=== PATIENT | female | born 1960 | race Caucasian/White ===

== ENCOUNTER 2016-11-10 16:12 | Emergency (ER) | payer OTHER ==
--- NOTE | 2016-11-10 17:21 | RAD ---
EXAM: LEFT KNEE FOUR VIEWS 11/10/16 HISTORY: Fall. Pain. COMPARISON: None. FINDINGS: There is a minimally displaced patellar fracture. Associated minimal suprapatellar effusion. Medial and lateral joint spaces appear to be preserved. No additional fractures. IMPRESSION: Minimally displaced patellar fracture. POS: BERHANE
[2016-11-10] MEDS ORDERED: Ketorolac Tromethamine 60 MG/2 ML VIAL ONE (18:12)
--- NOTE | 2016-11-10 18:16 | PICIS ---
[facility] EMERGENCY RECORD TRIAGE ([facility] Nov 10, 2016 16:24 JPER) PATIENT: NAME: Deana Sandra, AGE: 56, GENDER: female, : Sat1960, TIME OF GREET: SatNov 10, 2016 16:13, PREFERRED LANGUAGE: Wolof, RACE: WHITE, ETHNICITY: Not or , ECODE BILLING MAP: [facility], SSN: [id number], Zip Code: [address], KG WEIGHT: 76.66, PHONE: , , , PERSON ID: [id number], PCP: DIANN. ([facility] Nov 10, 2016 16:24 JPER) COMPLAINT: LT LEG PAIN. ([facility] Nov 10, 2016 16:24 JPER) ADMISSION: URGENCY: 4 Non Urgent, ADMISSION SOURCE: Home, TRANSPORT: Walk-in, BED: ED -03. ([facility] Nov 10, 2016 16:24 JPER) ASSESSMENT: Assessment: FELL APPROX 15 MIN PAST FALLING ON LEFT KNEE. ([facility] Nov 10, 2016 16:24 JPER) PAIN: Patient complains of pain described as, aching, on a scale 0-10 patient rates pain as 10. ([facility] Nov 10, 2016 16:24 JPER) IMMUNIZATIONS: Flu vaccine up to date, Tetanus immunization up to date, Pneumococcal vaccine up to date. ([facility] Nov 10, 2016 16:24 JPER) SIRS SCORING: Heart Rate 55-109 (0), Temp range 96.8-101.1 (0), respiratory rate 12-24 (0), Mental Status altered: no (0). ([facility] Nov 10, 2016 16:24 JPER) TRIAGE SCREENING: Patient denies suicidal ideation, Patient denies presence of domestic violence. ([facility] Nov 10, 2016 16:24 JPER) PROVIDERS: TRIAGE NURSE: Marce Kitchen RN. ([facility] Nov 10, 2016 16:24 JPER) VITAL SIGNS: BP 135/79, Pulse 84, Resp 18, Temp 98.5, (Oral), Pain 10, O2 Sat 98, on Room Air, Time 11/10/2016 16:19. (16:19 JPER) PREVIOUS VISIT ALLERGIES: Penicillins. ([facility] Nov 10, 2016 16:24 JPER) KNOWN ALLERGIES ALLERGIES: (Unconfirmed) FOOD ALLERGIES: (Unconfirmed) Iodides Iodine (Unconfirmed) LATEX ALLERGY? (Unconfirmed) Penicillin G Sodium (Unconfirmed) Penicillins Sulfa (Sulfonamide Antibiotics): - Entered category: Sulfa (Sulfonamide Antibiotics) Sulfa Antibiotics (Unconfirmed) Sulfacetamide (Unconfirmed) Sulfasalazine (Unconfirmed) Sulfonamide Derivatives (Unconfirmed) VICOdin CURRENT MEDICATIONS Protonix: TABLET, DELAYED RELEASE (ENTERIC COATED) : Strength - 40 mg : ORAL Patient Dose: once a day (in the morning). (16:26 JPER) &a-1R&a+25V*p+0X*s3542B*c202B*c15G*c2P*p-0X&a-25V&a+1R Name: Deana Sandra : 1960 F56 MedRec: [id number] AcctNum: [id number] Prepared: Sat Nov 10, 2016 18:44 by Interface Page 1 of 6 pMD [facility] EMERGENCY RECORD Carafate: SUSPENSION, ORAL (FINAL DOSE FORM) : Strength - 1 gram/10 mL : ORAL Patient Dose: 4 times a day. (16:26 JPER) aspirin: TABLET, CHEWABLE : Strength - 81 mg : ORAL Patient Dose: mg Oral once a day. (16:27 JPER) VITAL SIGNS VITAL SIGNS: BP: 135/79, Pulse: 84, Resp: 18, Temp: 98.5 (Oral), Pain: 10, O2 sat: 98 on Room Air, Time: 11/10/2016 16:19. (16:19 JPER) BP: 135/79, Pulse: 84, Resp: 18, Temp: 98.5 (Oral), Pain: 10, O2 sat: 98 on Room Air, Time: 11/10/2016 16:19. (16:19 JPER) BP: 134/73, Pulse: 66, Resp: 18, O2 sat: 99 on RA, Time: 11/10/2016 17:25. (17:25 JPER) BP: 134/73, Pulse: 66, Resp: 18, Temp: 98.5 (Oral), Pain: 10, O2 sat: 99 on Room Air, Time: 11/10/2016 17:25. (17:25 JPER) BP: 135/75, Pulse: 66, Resp: 18, Temp: 98.5 (Oral), Pain: 10, O2 sat: 99 on Room Air, Time: 11/10/2016 17:48. (17:48 JPER) NURSING ASSESSMENT: EXTREMITY LOWER (16:31 JPER) CONSTITUTIONAL: Patient arrives, via hospital wheelchair, Unsteady gait, Assistance to cart, History obtained from patient, Patient appears, obese, uncomfortable, Patient cooperative, Patient alert, Oriented to person, place and time, Skin warm, Skin dry, Skin normal in color, Mucous membranes pink, Mucous membranes moist, Patient is well-groomed, Patient complains of LEFT KNEE PAIN X 30 MIN S/P FALL AT HOME. PAIN: aching pain, to the left knee, on a scale 0-10 patient rates pain as 10, Pain exacerbated by nothing, Nothing has been tried to alleviate the pain. LEFT LOWER EXTREMITY: Left lower extremity assessment findings include capillary refill less than 2 seconds, Skin color normal, Skin temperature warm, Distal sensation intact, Muscle tone normal, dorsalis pedis pulse is +3, Notes: MINIMAL BUT NOTED SWELLING TO LEFT KNEE; NO BRUISING AT THIS TIME; NO ABRASION NOTED AT THIS TIME. NOTES: Emotional support needed and given, Patient tolerated procedure with difficulty. NURSING PROCEDURE: DISCHARGE NOTE (17:48 JPER) DISCHARGE: Patient discharged to home, in a wheelchair, family driving, accompanied by other family member, Summary of Care printed/ provided, Patient requested and was provided an electronic copy of Discharge Instructions, Transition record given to patient, Discharge instructions given to patient, Prescriptions given and instructions on side effects given, Above person(s) verbalized understanding of discharge instructions and follow-up care, Patient instructed not to drive home, Patient treated and evaluated by physician. &a-1R&a+25V*p+0X*l8311D*c202B*c15G*c2P*p-0X&a-25V&a+1R Name: Deana Sandra : 1960 F56 MedRec: [id number] AcctNum: [id number] Prepared: Sat Nov 10, 2016 18:44 by Interface Page 2 of 6 pMD [facility] EMERGENCY RECORD BELONGINGS: Belongings remain with patient, Valuables remain with patient. NOTES: Emotional support needed and given, Patient tolerated procedure well. NURSING PROCEDURE: SPLINTING (17:25 JPER) PATIENT IDENTIFIER: Patient's identity verified by patient stating name, Patient's identity verified by hospital ID bracelet. SPLINTING: Splint applied to, the left knee, by ROSCOE CARREON, knee immobilizer applied, Immobilized in position of function. FOLLOW-UP: After procedure, capillary refill less than 2 seconds, After procedure, distal circulation intact, After procedure, distal motor function intact, After procedure, distal sensation intact, After procedure, distal pulses present. NOTES: Emotional support needed and given, Patient tolerated procedure well. VITAL SIGNS: BP: 134, / 73, Pulse: 66, Resp: 18, O2 sat: 99, on: RA. ORDER DETAILS Order Name: IMMOBILIZE AFFECTED AREA ED, Status: Done, Time: 17:58 11/10/2016, User: ROLANDA, - Ordered for: MD Rj, Yoshi, - Entered by: VELMA Kitchen Jana - Sat Nov 10, 2016 17:56, - Quantity: 1. MEDICATION ADMINISTRATION SUMMARY Drug Name: [place], Dose Ordered: 2 tab(s), Route: Oral, Status: Canceled, Time: 17:11 11/10/2016, Drug Name: Toradol intramuscular, Dose Ordered: 2 mL, Route: Intramuscular, Status: Given, Time: 17:25 11/10/2016, Detailed record available in Medication Service section. MEDICATION SERVICE Toradol intramuscular: Order: Toradol intramuscular (ketorolac tromethamine) - Dose: 2 mL : Intramuscular POTENTIAL CONTRAINDICATED INTERACTION: aspirin oral - Benefits outweigh risks, Patient tolerated similar in past, Potential interaction discussed with patient/family, Reviewed with patient Schedule: Now Ordered by: Yoshi De La Rosa MD Entered by: Yoshi De La Rosa MD Sat Nov 10, 2016 17:12 Documented as given by: Marce Kitchen RN Sat Nov 10, 2016 17:25 Patient, Medication, Dose, Route and Time verified prior to administration. IM medication, Amount given: 60MG, Medication administered to right hip, Correct patient, time, route, dose and medication confirmed prior to administration, Patient advised of actions and side-effects &a-1R&a+25V*p+0X*g7264H*c202B*c15G*c2P*p-0X&a-25V&a+1R Name: Deana Sandra : 1960 F56 MedRec: [id number] AcctNum: [id number] Prepared: Sat Nov 10, 2016 18:44 by Interface Page 3 of 6 pMD [facility] EMERGENCY RECORD prior to administration, Allergies confirmed and medications reviewed prior to administration, Administered by ROSCOE CARREON, Patient in position of comfort, Side rails up, Cart in lowest position, Family at bedside. (CANCELED) [place]: Order: [place] (hydrocodone bitartrate/acetaminophen) - Dose: 2 tab(s) : Oral POTENTIAL ALLERGY REACTION: 'VICOdin [acetaminophen/hydrocodone/hydrocodone bitartrate]' - Not a true drug allergy, Reviewed with patient Schedule: Now Ordered by: Yoshi De La Rosa MD Entered by: Yoshi De La Rosa MD Sat Nov 10, 2016 17:05 Canceled by: Yoshi De La Rosa MD. Sat Nov 10, 2016 17:11 Cancel reason: Change in medication plan. HPI FALL (17:06 BGOE) CHIEF COMPLAINT: Patient presents for evaluation of fall, while walking or running. HISTORIAN: History provided by patient, patient fell over baby carrier landing directly on left knee. c/o localized pain to anterior knee. LOCATION: Symptoms are localized. QUALITY: Pain is dull in nature, described as aching. TIME COURSE: Sudden onset of symptoms, just prior to arrival, There has been no change in the patient's symptoms over time. SEVERITY: Maximum severity of symptoms severe, Currently symptoms are moderate. ASSOCIATED WITH: Associated with knee pain, on the left, No associated symptoms, h/o previous injury that limits movement of toes. EXACERBATED BY: Patient's condition exacerbated by flexion. RELIEVED BY: Patient's condition relieved by nothing, Patient's condition relieved by nothing because patient has not tried anything for relief. ROS (17:07 BGOE) NOTES: All systems reviewed, negative except as described above. PAST MEDICAL HISTORY MEDICAL HISTORY: Past medical history includes cardiac history, myocardial infarction, Treated with stent placement, Number of stents: 5, Past medical history includes renal disease, kidney stone(s), Past medical history includes cardiac history, stints x 06 dec 2015, Past medical history includes history of hypertension, which has been treated, Patient is compliant. ([facility] Nov 10, 2016 16:24 JPER) FEMALE SURGICAL HISTORY: LEFT FOOT LEFT ARM YESY LEFT JAW, Surgical history of cholecystectomy, Surgical history of hysterectomy, stints x 2 dec &a-1R&a+25V*p+0X*h7866N*c202B*c15G*c2P*p-0X&a-25V&a+1R Name: Deana Sandra : 1960 F56 MedRec: [id number] AcctNum: [id number] Prepared: [facility] Nov 10, 2016 18:44 by Interface Page 4 of 6 pMD [facility] EMERGENCY RECORD 201`6. ([facility] Nov 10, 2016 16:24 JPER) PSYCHIATRIC HISTORY: Notes: DENIES. ([facility] Nov 10, 2016 16:24 JPER) SOCIAL HISTORY: Patient denies alcohol use, Patient denies drug use, Patient has no smoking history. ([facility] Nov 10, 2016 16:24 JPER) NOTES: Nursing records reviewed, Agree with nursing records, Medication list reviewed. (17:09 BGOE) PHYSICAL EXAM (17:07 BGOE) CONSTITUTIONAL: Patient afebrile, Pulse normal, Blood pressure normal, Respiratory rate normal, Patient appears non toxic, Patient appears in pain, in severe pain distress, Patient alert and oriented to person, place and time. HEAD: Head exam included findings of head atraumatic, normocephalic. EYES: Eye exam included findings of eyelids normal to inspection, Pupils equally round and reactive to light, Extraocular muscles intact. ENT: ENT exam normal. RESPIRATORY CHEST: Respiratory and chest exam normal. CARDIOVASCULAR: Cardiovascular exam included findings of heart rate regular rate and rhythm, Pedal pulses normal. ABDOMEN FEMALE: Abdominal exam included findings of abdomen nontender, Bowel sounds normal. LOWER EXTREMITY: Left knee exam included findings of, tenderness, active range of motion abnormal, passive range of motion abnormal, distal pulses intact, capillary refill less than 2 seconds, distal motor impaired, distal sensory intact, distal motor no change from her normal, Right knee unaffected. PSYCHIATRIC: Psychiatric exam normal. EVENTS TRANSFER: Triage to Emergency Main ED -03. ([facility] Nov 10, 2016 16:24 JPER) Removed from Emergency Main ED -03. (18:01 JPER) RADIOLOGYINTERPRETATION (17:09 BGOE) LOWER EXTREMITIES: Knee films, of the left knee show, non-displaced fracture, of the patella, no dislocation. O2SAT INTERPRETATION (17:09 BGOE) O2SAT: Single pulse oximetry, Oxygen saturation interpretation: Normal. DOCTOR NOTES (17:11 BGOE) TEXT: immobilizer placed. injury discussed. f/u ortho for further care. PATIENT STATUS: Patient has improved since arrival to emergency &a-1R&a+25V*p+0X*y9387E*c202B*c15G*c2P*p-0X&a-25V&a+1R Name: Deana Sandra : 1960 F56 MedRec: [id number] AcctNum: [id number] Prepared: Sat Nov 10, 2016 18:44 by Interface Page 5 of 6 D [facility] EMERGENCY RECORD department. PATIENT PLAN: The patient will be discharged, The patient will follow up with primary care physician. PROBLEM LIST No recorded problems DIAGNOSIS (17:12 BGOE) FINAL: PRIMARY: Patella fracture. DISPOSITION PATIENT: Disposition Type: Discharge, Disposition: *Discharge Home, Condition: Good. (17:12 BGOE) Patient left the department. (18:01 JPER) INSTRUCTION (17:13 BGOE) DISCHARGE: FRACTURE PATELLA. FOLLOWUP: Follow up with Primary Care Physician in 1-2 days, Follow up with Specialist in 1-2 days. SPECIAL: keep immobilizer in place Tylenol or Advil for Pain Follow-up with your PCP/orthopedics. PRESCRIPTION (17:12 BGOE) Aceta-Codeine: TABLET : 300 mg-30 mg : ORAL : Quantity: 1 Unit: tab(s) Route: ORAL Schedule: every 8 hours PRN Dispense: 30 Unit: tab(s) May substitute. Refills: No Refills POTENTIAL ALLERGY REACTION: 'VICOdin [acetaminophen/hydrocodone/hydrocodone bitartrate]' Override Rationale: Not a true drug allergy, Potential interaction discussed with patient/family, Reviewed with patient. NOTES: No Refills. IMAGING DME: Image captured from scanner. (17:39 JPER) *SUPPLY CHARGE SHEET: Image captured from scanner. (17:40 JPER) *DISCHARGE INSTRUCTIONS RECEIPT: Image captured from scanner. (17:48 JPER) ADMIN DIGITAL SIGNATURE: VELMA Kitchen, Marce. (17:56 JPER) MD De La Rosa Brian. (18:36 BGOE) Joel: BGOE=MD De La Rosa Brian JPER=VELMA Kitchen Jana &a-1R&a+25V*p+0X*q6629X*c202B*c15G*c2P*p-0X&a-25V&a+1R Name: Deana Sandra Suri : 1960 F56 MedRec: [id number] AcctNum: [id number] Prepared: Chavo Nov 10, 2016 18:44 by Interface Page 6 of 6 pMD MTDD
--- NOTE | 2016-11-10 18:23 | ERRECORD ---
[facility] EMERGENCY RECORD HPI FALL (17:06 BGOE) CHIEF COMPLAINT: Patient presents for evaluation of fall, while walking or running. HISTORIAN: History provided by patient, patient fell over baby carrier landing directly on left knee. c/o localized pain to anterior knee. LOCATION: Symptoms are localized. QUALITY: Pain is dull in nature, described as aching. TIME COURSE: Sudden onset of symptoms, just prior to arrival, There has been no change in the patient's symptoms over time. SEVERITY: Maximum severity of symptoms severe, Currently symptoms are moderate. ASSOCIATED WITH: Associated with knee pain, on the left, No associated symptoms, h/o previous injury that limits movement of toes. EXACERBATED BY: Patient's condition exacerbated by flexion. RELIEVED BY: Patient's condition relieved by nothing, Patient's condition relieved by nothing because patient has not tried anything for relief. ROS (17:07 BGOE) NOTES: All systems reviewed, negative except as described above. PAST MEDICAL HISTORY MEDICAL HISTORY: Past medical history includes cardiac history, myocardial infarction, Treated with stent placement, Number of stents: 5, Past medical history includes renal disease, kidney stone(s), Past medical history includes cardiac history, stints x 06 dec 2015, Past medical history includes history of hypertension, which has been treated, Patient is compliant. (Sat Nov 10, 2016 16:24 JPER) FEMALE SURGICAL HISTORY: LEFT FOOT LEFT ARM YESY LEFT JAW, Surgical history of cholecystectomy, Surgical history of hysterectomy, stints x 2 dec 201`6. (Sat Nov 10, 2016 16:24 JPER) PSYCHIATRIC HISTORY: Notes: DENIES. ([facility] Nov 10, 2016 16:24 JPER) SOCIAL HISTORY: Patient denies alcohol use, Patient denies drug use, Patient has no smoking history. (Sat Nov 10, 2016 16:24 JPER) NOTES: Nursing records reviewed, Agree with nursing records, Medication list reviewed. (17:09 BGOE) KNOWN ALLERGIES ALLERGIES: (Unconfirmed) FOOD ALLERGIES: (Unconfirmed) Iodides Iodine (Unconfirmed) LATEX ALLERGY? (Unconfirmed) Penicillin G Sodium (Unconfirmed) &a-1R&a+25V*p+0X*q2918H*c202B*c15G*c2P*p-0X&a-25V&a+1R Name: Deana Sandra : 1960 F56 MedRec: [id number] AcctNum: [id number] Prepared: Sat Nov 10, 2016 18:38 by Interface Page 1 of 3 pMD [facility] EMERGENCY RECORD Penicillins Sulfa (Sulfonamide Antibiotics): - Entered category: Sulfa (Sulfonamide Antibiotics) Sulfa Antibiotics (Unconfirmed) Sulfacetamide (Unconfirmed) Sulfasalazine (Unconfirmed) Sulfonamide Derivatives (Unconfirmed) VICOdin CURRENT MEDICATIONS Protonix: TABLET, DELAYED RELEASE (ENTERIC COATED) : Strength - 40 mg : ORAL Patient Dose: once a day (in the morning). (16:26 JPER) Carafate: SUSPENSION, ORAL (FINAL DOSE FORM) : Strength - 1 gram/10 mL : ORAL Patient Dose: 4 times a day. (16:26 JPER) aspirin: TABLET, CHEWABLE : Strength - 81 mg : ORAL Patient Dose: mg Oral once a day. (16:27 JPER) VITAL SIGNS VITAL SIGNS: BP: 135/79, Pulse: 84, Resp: 18, Temp: 98.5 (Oral), Pain: 10, O2 sat: 98 on Room Air, Time: 11/10/2016 16:19. (16:19 JPER) BP: 135/79, Pulse: 84, Resp: 18, Temp: 98.5 (Oral), Pain: 10, O2 sat: 98 on Room Air, Time: 11/10/2016 16:19. (16:19 JPER) BP: 134/73, Pulse: 66, Resp: 18, O2 sat: 99 on RA, Time: 11/10/2016 17:25. (17:25 JPER) BP: 134/73, Pulse: 66, Resp: 18, Temp: 98.5 (Oral), Pain: 10, O2 sat: 99 on Room Air, Time: 11/10/2016 17:25. (17:25 JPER) BP: 135/75, Pulse: 66, Resp: 18, Temp: 98.5 (Oral), Pain: 10, O2 sat: 99 on Room Air, Time: 11/10/2016 17:48. (17:48 JPER) PHYSICAL EXAM (17:07 BGOE) CONSTITUTIONAL: Patient afebrile, Pulse normal, Blood pressure normal, Respiratory rate normal, Patient appears non toxic, Patient appears in pain, in severe pain distress, Patient alert and oriented to person, place and time. HEAD: Head exam included findings of head atraumatic, normocephalic. EYES: Eye exam included findings of eyelids normal to inspection, Pupils equally round and reactive to light, Extraocular muscles intact. ENT: ENT exam normal. RESPIRATORY CHEST: Respiratory and chest exam normal. CARDIOVASCULAR: Cardiovascular exam included findings of heart rate regular rate and rhythm, Pedal pulses normal. ABDOMEN FEMALE: Abdominal exam included findings of abdomen nontender, Bowel sounds normal. LOWER EXTREMITY: Left knee exam included findings of, tenderness, active range of motion abnormal, &a-1R&a+25V*p+0X*r5691P*c202B*c15G*c2P*p-0X&a-25V&a+1R Name: Deana Sandra : 1960 F56 MedRec: [id number] AcctNum: [id number] Prepared: Chavo Nov 10, 2016 18:38 by Interface Page 2 of 3 pMD [facility] EMERGENCY RECORD passive range of motion abnormal, distal pulses intact, capillary refill less than 2 seconds, distal motor impaired, distal sensory intact, distal motor no change from her normal, Right knee unaffected. PSYCHIATRIC: Psychiatric exam normal. RADIOLOGYINTERPRETATION (17:09 BGOE) LOWER EXTREMITIES: Knee films, of the left knee show, non-displaced fracture, of the patella, no dislocation. MEDICATION ADMINISTRATION SUMMARY Drug Name: [place], Dose Ordered: 2 tab(s), Route: Oral, Status: Canceled, Time: 17:11 11/10/2016, Drug Name: Toradol intramuscular, Dose Ordered: 2 mL, Route: Intramuscular, Status: Given, Time: 17:25 11/10/2016, Detailed record available in Medication Service section. DOCTOR NOTES (17:11 BGOE) TEXT: immobilizer placed. injury discussed. f/u ortho for further care. PATIENT STATUS: Patient has improved since arrival to emergency department. PATIENT PLAN: The patient will be discharged, The patient will follow up with primary care physician. PROBLEM LIST No recorded problems DIAGNOSIS (17:12 BGOE) FINAL: PRIMARY: Patella fracture. PRESCRIPTION (17:12 BGOE) Aceta-Codeine: TABLET : 300 mg-30 mg : ORAL : Quantity: 1 Unit: tab(s) Route: ORAL Schedule: every 8 hours PRN Dispense: 30 Unit: tab(s) May substitute. Refills: No Refills POTENTIAL ALLERGY REACTION: 'VICOdin [acetaminophen/hydrocodone/hydrocodone bitartrate]' Override Rationale: Not a true drug allergy, Potential interaction discussed with patient/family, Reviewed with patient. NOTES: No Refills. DISPOSITION PATIENT: Disposition Type: Discharge, Disposition: *Discharge Home, Condition: Good. (17:12 BGOE) Patient left the department. (18:01 JPER) Joel: BGOE=MD Rj, Yoshi JPER=VELMA Kitchen, Marce &a-1R&a+25V*p+0X*a0643X*c202B*c15G*c2P*p-0X&a-25V&a+1R Name: Deana Sandra : 1960 F56 MedRec: [id number] AcctNum: [id number] Prepared: Chavo Nov 10, 2016 18:38 by Interface Page 3 of 3 pMD MTDD
== END 2016-11-10 17:48 | disposition home or self-care (01) ==
LOC: MADERS 16:12
DX: S82.002A Unspecified fracture of left patella, initial encounter for closed fracture (principal); I25.2 Old myocardial infarction; I10 Essential (primary) hypertension; Z90.49 Acquired absence of other specified parts of digestive tract; Z90.710 Acquired absence of both cervix and uterus; W01.0XXA Fall on same level from slipping, tripping and stumbling without subsequent striking against object, initial encounter
CPT/HCPCS: 96372; J1885

== ENCOUNTER 2016-12-04 02:46 | Emergency (ER) | payer OTHER ==
[2016-12-04] MEDS ORDERED: Ondansetron HCl/PF 4 MG/2 ML Vial ONE (03:11)
[2016-12-04] MEDS ORDERED: diphenhydrAMINE HCl 50 MG/ML 1 ML VIAL ONE ×2 (03:11→03:13)
[2016-12-04] MEDS ORDERED: Ketorolac Tromethamine 30 MG/ML VIAL ONE (04:14)
--- NOTE | 2016-12-04 04:47 | ERRECORD ---
[facility] EMERGENCY RECORD HPI KNEE (03:06 LLDO) CHIEF COMPLAINT: Patient presents for evaluation of decreased range of motion, Patient presents for evaluation of injury, Patient presents for evaluation of pain, Patient presents for evaluation of tenderness, Patient presents for evaluation of weakness, Patient presents for evaluation of broke her left patella and had it surgically repaired in [place]. per spouse, surgeon used screw and wire. pt was doing well until going to the bathroom this morning, twisted the knee some, heard a loud "pop" and immediately had severe pain. pain is constant. HISTORIAN: History provided by patient, History provided by patient's spouse. MECHANISM OF INJURY: Unknown mechanism, Mechanism of injury: Body motion, Mechanism of injury is unknown. LOCATION: Symptoms are generalized. QUALITY: Pain is dull in nature, described as aching, described as BECOMES SHARP WITH MOVEMENT OR PALPATION. SEVERITY: Maximum severity of symptoms severe, Currently symptoms are severe. TIME COURSE: Sudden onset of symptoms, just prior to arrival, There has been no change in the patient's symptoms over time. ASSOCIATED WITH: Associated with decreased range of motion, Associated with inability to ambulate, Associated with inability to bear weight, No associated open wounds, Associated with swelling, incision well healed w/o evidence of any inflammation or infection. EXACERBATED BY: Patient's condition exacerbated by movement. RELIEVED BY: Patient's condition relieved by nothing. ROS CONSTITUTIONAL: Negative constitutional review of systems. (03:14 LLDO) EYES: Negative eye review of systems, Historian denies eye pain, denies eye redness, denies eye discharge. (03:18 LLDO) ENT: Negative ears, nose, throat review of systems, Historian denies epistaxis, denies rhinorrhea, denies sinus pain, denies sore throat. (03:18 LLDO) MUSCULOSKELETAL: Historian reports arthralgias, reports injury. ONLY IN HPI. (03:14 LLDO) SKIN: Negative skin review of systems, Historian denies cellulitis, denies rash, denies skin changes, denies skin lesions. (03:18 LLDO) NEUROLOGIC: Negative neurologic review of systems, Historian denies confusion, denies dizziness, denies focal weakness, denies mental status changes. (03:18 LLDO) HEMO/LYMPHATIC: Normal hematologic/lymphatic system review, Historian denies abnormal blood clotting, denies gum bleeding, denies petechiae. (03:18 LLDO) ALLERGIC/IMMUNOLOGIC: Normal allergy/immunologic system review, &a-1R&a+25V*p+0X*r0536X*c202B*c15G*c2P*p-0X&a-25V&a+1R Name: Deana Sandra : 1960 F56 MedRec: [id number] AcctNum: [id number] Prepared: Ahmet Dec 04, 2016 05:31 by Interface Page 1 of 4 pMD [facility] EMERGENCY RECORD Historian denies eczema, denies environmental allergies, denies food allergies. (03:18 LLDO) PSYCHIATRIC: Negative psychiatric review of systems, Historian denies alcohol abuse, denies anxiety, denies depression, denies drug abuse, denies hallucinations. (03:18 LLDO) NOTES: All systems reviewed, negative except as described above. (03:14 LLDO) PAST MEDICAL HISTORY MEDICAL HISTORY: Past medical history includes cardiac history, myocardial infarction, Treated with stent placement, Number of stents: 5, Past medical history includes renal disease, kidney stone(s), Past medical history includes cardiac history, stints x 06 dec 2015, Past medical history includes history of hypertension, which has been treated, Patient is compliant. no changes 12/04/16. (04:09 AGAN) FEMALE SURGICAL HISTORY: Surgical history of orthopedic surgery, left knee, Notes: 2 weeks ago, LEFT FOOT LEFT ARM YESY LEFT JAW, Surgical history of cholecystectomy, Surgical history of hysterectomy, stints x 2 dec 201`6. (04:09 AGAN) PSYCHIATRIC HISTORY: Notes: DENIES. (04:09 AGAN) SOCIAL HISTORY: Patient denies alcohol use, Patient denies drug use, Patient has no smoking history, Patient denies alcohol use, Patient denies drug use, Patient has no smoking history. (04:09 AGAN) NOTES: Nursing records reviewed, Agree with nursing records, Medication list reviewed. (03:18 LLDO) KNOWN ALLERGIES ALLERGIES: (Unconfirmed) FOOD ALLERGIES: (Unconfirmed) Iodides Iodine (Unconfirmed) LATEX ALLERGY? (Unconfirmed) Penicillin G Sodium (Unconfirmed) Penicillins Sulfa (Sulfonamide Antibiotics): - Entered category: Sulfa (Sulfonamide Antibiotics) Sulfa Antibiotics (Unconfirmed) Sulfacetamide (Unconfirmed) Sulfasalazine (Unconfirmed) Sulfonamide Derivatives (Unconfirmed) VICOdin CURRENT MEDICATIONS No recorded medications VITAL SIGNS VITAL SIGNS: BP: 150/116, Pulse: 105, Resp: 24, Temp: 97 &a-1R&a+25V*p+0X*[id number]*c202B*c15G*c2P*p-0X&a-25V&a+1R Name: Deana Sandra : 1960 F56 MedRec: [id number] AcctNum: [id number] Prepared: SatDec 04, 2016 05:31 by Interface Page 2 of 4 pMD [facility] EMERGENCY RECORD (Tympanic), Pain: 10, O2 sat: 97% on Room Air, Time: 12/04/2016 02:55. (02:55 AGAN) BP: 129/81, Pulse: 94, Resp: 20, Pain: 9, O2 sat: 97% on RA, Time: 12/04/2016 03:40. (03:40 AGAN) BP: 118/76, Pulse: 89, Resp: 20, O2 sat: 97 on RA, Time: 12/04/2016 04:30. (04:30 AGAN) BP: 97/66, Pulse: 83, Resp: 18, Temp: 97.7, Pain: 7, O2 sat: 96% on RA, Time: 12/04/2016 04:55. (04:55 AGAN) PHYSICAL EXAM CONSTITUTIONAL: Vital Signs Reviewed, Patient afebrile, Pulse normal, Blood pressure, in severe pain, Respiratory rate normal, Patient appears, uncomfortable, Patient appears, in severe pain distress, Patient alert and oriented to person, place and time, Nursing notes reviewed. (03:15 LLDO) HEAD: Head exam normal, Head exam included findings of head atraumatic, normocephalic. (03:18 LLDO) EYES: Eye exam normal, Eye exam included findings of eyelids normal to inspection, Pupils equally round and reactive to light, Extraocular muscles intact. (03:18 LLDO) ENT: ENT exam normal, Ear exam normal, Nose exam normal. (03:18 LLDO) NECK: Neck exam normal, Neck exam included findings of normal range of motion, Trachea midline, no meningeal signs, no tenderness. (03:18 LLDO) BACK: Back exam normal, Back exam included findings of normal inspection, range of motion normal. (03:18 LLDO) UPPER EXTREMITY: Upper extremity exam normal, Upper extremity exam included findings of inspection normal, Range of motion normal. (03:18 LLDO) LOWER EXTREMITY: Lower extremity exam included findings of inspection abnormal, swelling, Range of motion, Left knee:, unable to move on own, Passive range of motion causes pain, Motor strength, Sensation intact, Posterior tibial pulse normal, Pedal pulse normal, Airam's negative, distal pulses intact, capillary refill less than 2 seconds, distal motor impaired, left side, distal sensory intact. (03:15 LLDO) NEURO: Neuro exam normal, Neuro exam findings include patient oriented to person, place and time, Speech normal, [place] coma scale 15. (03:18 LLDO) SKIN: Skin exam normal, Skin exam included findings of skin warm, dry, and normal in color, no rash. (03:18 LLDO) PSYCHIATRIC: Psychiatric exam normal, Psychiatric exam included findings of patient oriented to person place and time, Normal affect. (03:18 LLDO) MEDICATION ADMINISTRATION SUMMARY &a-1R&a+25V*p+0X*[id number]*c202B*c15G*c2P*p-0X&a-25V&a+1R Name: Deana Sandra : 1960 F56 MedRec: [id number] AcctNum: [id number] Prepared: Ahmet Dec 04, 2016 05:31 by Interface Page 3 of 4 pMD [facility] EMERGENCY RECORD Drug Name: Toradol injection, Dose Ordered: 30 mg, Route: IV Push, Status: Given, Time: 04:22 12/04/2016, Drug Name: Duramorph (PF), Dose Ordered: 4 mg, Route: IV Push, Status: Given, Time: 04:19 12/04/2016, Drug Name: Zofran intravenous, Dose Ordered: 8 mg, Route: IV Push, Status: Given, Time: 03:17 12/04/2016, Drug Name: Duramorph (PF), Dose Ordered: 4 mg, Route: IV Push, Status: Given, Time: 03:15 12/04/2016, Drug Name: Benadryl injection, Dose Ordered: 25 mg, Route: IV Push, Status: Given, Time: 03:12 12/04/2016, Detailed record available in Medication Service section. DOCTOR NOTES (04:33 LLDO) TEXT: pt has a good supply of oxycontin for home now. she is to call surgeon this morning for sandy appt. no wt-bearing. can't use crutches but has walker and wheelchair at home. PROBLEM LIST No recorded problems DIAGNOSIS (04:33 LLDO) FINAL: PRIMARY: LEFT knee pain. PRESCRIPTION No recorded prescriptions DISPOSITION PATIENT: Disposition Type: Discharge, Disposition: *Discharge Home. (04:33 LLDO) Disposition Transport: Wheelchair, Condition: Good, Patient left the department. (05:28 TERRI) Joel: TERRI=VELMA Ochoa, Faisal LLDO=MD Hood, Fred &a-1R&a+25V*p+0X*i4451Z*c202B*c15G*c2P*p-0X&a-25V&a+1R Name: Deana Sandra : 1960 F56 MedRec: [id number] AcctNum: [id number] Prepared: Ahmet Dec 04, 2016 05:31 by Interface Page 4 of 4 pMD MTDD
--- NOTE | 2016-12-04 04:52 | PICIS ---
[facility] EMERGENCY RECORD TRIAGE (SatDec 04, 2016 02:57 AGAN) TRIAGE NOTES: twisted my knee (s/p knee cap procedure). (SatDec 04, 2016 02:57 AGAN) PATIENT: NAME: Deana Sandra, AGE: 56, GENDER: female, : Sat1960, TIME OF GREET: SatDec 04, 2016 02:47, PREFERRED LANGUAGE: Syrian, ETHNICITY: Not or , ECODE BILLING MAP: [facility], SSN: [id number], Zip Code: [address], KG WEIGHT: 73.48, PHONE: , , , PERSON ID: [id number], PCP: KECIA. (SatDec 04, 2016 02:57 AGAN) COMPLAINT: PAIN IN LEFT KNEE. (SatDec 04, 2016 02:57 AGAN) ADMISSION: URGENCY: 3 Urgent, ADMISSION SOURCE: Home, TRANSPORT: CAR, BED: ED -01. (SatDec 04, 2016 02:57 AGAN) ASSESSMENT: Assessment: brought in by family members per wheelchair after having a sudden onset of pain to her left knee. Patient reports that she was using a walker going to her bathroom when she twisted it and heard a pop, Symptoms began 30 min ago. (04:09 AGAN) PAIN: Patient complains of pain described as, sharp, on a scale 0-10 patient rates pain as 10, Location left knee, Pain is constant. (04:09 AGAN) PROVIDERS: TRIAGE NURSE: Faisal Ochoa RN. (SatDec 04, 2016 02:57 AGAN) VITAL SIGNS: BP 150/116, Pulse 105, Resp 24, Temp 97, (Tympanic), Pain 10, O2 Sat 97%, on Room Air, Time 12/04/2016 02:55. (02:55 AGAN) PREVIOUS VISIT ALLERGIES: Iodides, Penicillins, Sulfa (Sulfonamide Antibiotics), VICOdin. (SatDec 04, 2016 02:57 AGAN) Iodides, Penicillins, Sulfa (Sulfonamide Antibiotics), VICOdin. (04:09 AGAN) KNOWN ALLERGIES ALLERGIES: (Unconfirmed) FOOD ALLERGIES: (Unconfirmed) Iodides Iodine (Unconfirmed) LATEX ALLERGY? (Unconfirmed) Penicillin G Sodium (Unconfirmed) Penicillins Sulfa (Sulfonamide Antibiotics): - Entered category: Sulfa (Sulfonamide Antibiotics) Sulfa Antibiotics (Unconfirmed) Sulfacetamide (Unconfirmed) Sulfasalazine (Unconfirmed) Sulfonamide Derivatives (Unconfirmed) VICOdin CURRENT MEDICATIONS No recorded medications &a-1R&a+25V*p+0X*y3613I*c202B*c15G*c2P*p-0X&a-25V&a+1R Name: Deana Sandra : 1960 F56 MedRec: [id number] AcctNum: [id number] Prepared: Ahmet Dec 04, 2016 05:37 by Interface Page 1 of 10 pMD [facility] EMERGENCY RECORD VITAL SIGNS VITAL SIGNS: BP: 150/116, Pulse: 105, Resp: 24, Temp: 97 (Tympanic), Pain: 10, O2 sat: 97% on Room Air, Time: 12/04/2016 02:55. (02:55 AGAN) BP: 129/81, Pulse: 94, Resp: 20, Pain: 9, O2 sat: 97% on RA, Time: 12/04/2016 03:40. (03:40 AGAN) BP: 118/76, Pulse: 89, Resp: 20, O2 sat: 97 on RA, Time: 12/04/2016 04:30. (04:30 AGAN) BP: 97/66, Pulse: 83, Resp: 18, Temp: 97.7, Pain: 7, O2 sat: 96% on RA, Time: 12/04/2016 04:55. 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 PAIN: sharp pain, to the left knee, constant, on a scale 0-10 patient rates pain as 10. LEFT LOWER EXTREMITY: Left lower extremity assessment findings include capillary refill less than 2 seconds, Skin color, normal for post op condition, Skin temperature warm, Distal sensation intact, Muscle tone normal, +1 edema present, posterior tibia pulse is +3, dorsalis pedis pulse is +3, Notes: surgical incision line intact and completely healed. RIGHT LOWER EXTREMITY: Right lower extremity assessment findings include capillary refill less than 2 seconds, Skin color normal, Skin temperature warm, Distal sensation intact, Muscle tone normal, Notes: Rt lower extremity has no problems. NURSING PROCEDURE: BEDSIDE RADIOLOGY (03:40 AGAN) PATIENT IDENTIFIER: Patient actively involved in identification process, Patient's identity verified by patient stating name, Patient's identity verified by patient stating date, Patient's identity verified by hospital ID bracelet. BEDSIDE RADIOLOGY: Portable x-ray performed, of the left knee. FOLLOW-UP: After procedure, ice therapy applied, After procedure, physician aware bedside radiology completed, After procedure, capillary refill less than 2 seconds, After procedure, distal circulation intact, After procedure, distal motor intact, After procedure, distal sensation intact, After procedure, distal pulses present. VITAL SIGNS: BP: 129, / 81, Pulse: 94, Resp: 20, Pain: 9, O2 sat: 97%, on: RA. &a-1R&a+25V*p+0X*e6471C*c202B*c15G*c2P*p-0X&a-25V&a+1R Name: Deana Sandra Suri : 1960 F56 MedRec: [id number] AcctNum: [id number] Prepared: Ahmet Dec 04, 2016 05:37 by Interface Page 2 of 10 pMD [facility] EMERGENCY RECORD NURSING PROCEDURE: DISCHARGE NOTE (04:55 AGAN) DISCHARGE: Patient discharged to home, in a wheelchair, family driving, accompanied by //partner, Summary of Care printed/ provided, Patient requested and was provided an electronic copy of Discharge Instructions, Transition record given to patient, Discharge instructions given to patient, Above person(s) verbalized understanding of discharge instructions and follow-up care, Patient discharged by, Dr. Dr. Morataya, Patient instructed not to drive home, Patient treated and evaluated by physician, Notes: Patient and family members instructed to follow up with PCP/Ortho this morning. Verbalized understanding. Patient is able to pivot bed to chair using good leg. BELONGINGS: Belongings remain with patient, Valuables remain with patient. VITAL SIGNS: BP: 97, / 66, Pulse: 83, Resp: 18, Temp: 97.7, Pain: 7, O2 sat: 96%, on: RA. NURSING PROCEDURE: IV PATIENT IDENITIFIER: Patient actively involved in identification process, Patient's identity verified by patient stating name, Patient's identity verified by patient stating date, Patient's identity verified by hospital ID bracelet. (03:15 AGAN) IV SITE 1: IV therapy indicated for medication administration, IV established, to the right antecubital, using an 18 gauge catheter, in one attempt, Saline lock established, Labs drawn at time of placement, labeled in the presence of the patient and sent to lab. (03:15 AGAN) FOLLOW-UP SITE 1: After procedure, 2x2 dressing applied, IV discontinued, due to patient being discharged, catheter intact. (04:50 AGAN) NURSING PROCEDURE: NURSE NOTES NURSES NOTES: Patient in no apparent distress, Pillow given to patient, Patient re-evaluated by physician, Notes: XR Tech in the room doing additional ordered film. (04:22 AGAN) Patient in no apparent distress, Ice packs applied, Patient is awaiting disposition, Patient re-evaluated by physician, Notes: Dr. Morataya in the room with the patient at this time. (04:30 AGAN) VITAL SIGNS: BP: 118, / 76, Pulse: 89, Resp: 20, O2 sat: 97, on: RA. (04:30 AGAN) NURSING PROCEDURE: SPLINTING (04:50 AGAN) PATIENT IDENTIFIER: Patient actively involved in identification process, Patient's identity verified by patient stating name, Patient's identity verified by patient stating date, Patient's identity verified by hospital ID bracelet. SPLINTING: Splinting indicated for pain control, Splint applied to, the left knee, 4 inch fany wrap applied, Immobilized in position of comfort. FOLLOW-UP: After procedure, ice therapy applied, After procedure, &a-1R&a+25V*p+0X*m9011W*c202B*c15G*c2P*p-0X&a-25V&a+1R Name: Deana Sandra : 1960 F56 MedRec: [id number] AcctNum: [id number] Prepared: SatDec 04, 2016 05:37 by Interface Page 3 of 10 pMD [facility] EMERGENCY RECORD capillary refill less than 2 seconds, After procedure, distal circulation intact, After procedure, distal motor function intact, After procedure, distal sensation intact, After procedure, distal pulses present, Notes: Knee brace from home in place. ORDER DETAILS Order Name: Miscellaneous Nurse Order(s), Status: Done, Time: 05:12 12/04/2016, User: TERRI, - Ordered for: MD Morataya Lloyd, - Entered by: MD Morataya Lloyd - Tue Dec 04, 2016 04:36, - Quantity: 1, Order Name: SALINE LOCK, Status: Done, Time: 03:25 12/04/2016, User: TERRI, - Ordered for: MD Morataya Lloyd, - Entered by: MD Morataya Lloyd - Tue Dec 04, 2016 03:03, - Quantity: 1, Order Name: XR Knee Lt 4 View STANDARD, Status: Active, Time: 03:04 12/04/2016, User: [email or web address], - Ordered for: MD Morataya Lloyd, - Entered by: MD Morataya Lloyd - Tue Dec 04, 2016 03:04, - Quantity: 1. MEDICATION ADMINISTRATION SUMMARY Drug Name: Toradol injection, Dose Ordered: 30 mg, Route: IV Push, Status: Given, Time: 04:22 12/04/2016, Drug Name: Duramorph (PF), Dose Ordered: 4 mg, Route: IV Push, Status: Given, Time: 04:19 12/04/2016, Drug Name: Zofran intravenous, Dose Ordered: 8 mg, Route: IV Push, Status: Given, Time: 03:17 12/04/2016, Drug Name: Duramorph (PF), Dose Ordered: 4 mg, Route: IV Push, Status: Given, Time: 03:15 12/04/2016, Drug Name: Benadryl injection, Dose Ordered: 25 mg, Route: IV Push, Status: Given, Time: 03:12 12/04/2016, Detailed record available in Medication Service section. MEDICATION SERVICE Benadryl injection: Order: Benadryl injection (diphenhydramine HCl) - Dose: 25 mg : IV Push Schedule: Now Ordered by: Fred Morataya MD Entered by: Fred Morataya MD adán Dec 04, 2016 03:06 , Acknowledged by: Faisal Ochoa RN Dec 04, 2016 03:11 Documented as given by: Faisal Ochoa RN Dec 04, 2016 03:12 Patient, Medication, Dose, Route and Time verified prior to administration. Amount given: 25 mg, IV SITE #1 IVP, initial medication, Slowly, Awake and alert- acceptable, Catheter placement confirmed via flush prior to administration, IV site without signs or symptoms of &a-1R&a+25V*p+0X*t5476L*c202B*c15G*c2P*p-0X&a-25V&a+1R Name: Deana Sandra Suri : 1960 F56 MedRec: [id number] AcctNum: [id number] Prepared: SatDec 04, 2016 05:37 by Interface Page 4 of 10 pMD [facility] EMERGENCY RECORD infiltration during medication administration, No swelling during administration, No drainage during administration, IV flushed after administration, Correct patient, time, route, dose and medication confirmed prior to administration, Patient advised of actions and side-effects prior to administration, Allergies confirmed and medications reviewed prior to administration, Patient tolerated procedure well, Patient in position of comfort, Side rails up, Cart in lowest position, Family at bedside. : Follow Up : Response assessment performed, No signs or symptoms of allergic reaction noted, Decreased pain, Decreased symptoms, _IV SITE #1:_, Patient in position of comfort. (03:45 AGAN) Duramorph (PF): Order: Duramorph (PF) (morphine sulfate/preservative free) - Dose: 4 mg : IV Push POTENTIAL ALLERGY REACTION: 'VICOdin [hydrocodone/hydrocodone bitartrate]' - Reviewed with patient, pt says can safely take this medicine Schedule: Now Ordered by: Fred Morataya MD Entered by: Fred Morataya MD Dec 04, 2016 03:05 , Acknowledged by: Faisal Ochoa RN Dec 04, 2016 03:11 Documented as given by: Faisal Ochoa RN Dec 04, 2016 03:15 Patient, Medication, Dose, Route and Time verified prior to administration. Amount given: 4 mg, IV SITE #1 IVP, initial medication, Slowly, Awake and alert- acceptable, Catheter placement confirmed via flush prior to administration, IV site without signs or symptoms of infiltration during medication administration, No swelling during administration, No drainage during administration, IV flushed after administration, Correct patient, time, route, dose and medication confirmed prior to administration, Patient advised of actions and side-effects prior to administration, Allergies confirmed and medications reviewed prior to administration, Patient tolerated procedure well. : Follow Up : Response assessment performed, No signs or symptoms of allergic reaction noted, Decreased pain, Decreased symptoms, _IV SITE #1:_, Advised not to ambulate without assistance, Patient in position of comfort, Side rails up, Cart in lowest position, Family at bedside. (03:30 AGAN) Duramorph (PF): Order: Duramorph (PF) (morphine sulfate/preservative free) - Dose: 4 mg : IV Push POTENTIAL ALLERGY REACTION: 'VICOdin [hydrocodone/hydrocodone bitartrate]' - Reviewed with patient, pt says can safely take this medicine Schedule: Now Ordered by: Fred Morataya MD Entered by: Fred Morataya MD Dec 04, 2016 04:12 , Acknowledged by: Faisal Ochoa RN Dec 04, 2016 04:14 Documented as given by: Faisal Ochoa RN Dec 04, 2016 04:19 Patient, Medication, Dose, Route and Time verified prior to &a-1R&a+25V*p+0X*w4973O*c202B*c15G*c2P*p-0X&a-25V&a+1R Name: Deana Sandra : 1960 F56 MedRec: [id number] AcctNum: [id number] Prepared: SatDec 04, 2016 05:37 by Interface Page 5 of 10 pMD [facility] EMERGENCY RECORD administration. Amount given: 4 mg, IV SITE #1 IVP, subsequent different medication, Slowly, Awake and alert- acceptable, Catheter placement confirmed via flush prior to administration, IV site without signs or symptoms of infiltration during medication administration, No swelling during administration, No drainage during administration, IV flushed after administration, Correct patient, time, route, dose and medication confirmed prior to administration, Patient advised of actions and side-effects prior to administration, Allergies confirmed and medications reviewed prior to administration, Patient tolerated procedure well, Patient in position of comfort, Side rails up, Cart in lowest position, Family at bedside. : Follow Up : Response assessment performed, No signs or symptoms of allergic reaction noted, Decreased pain, Decreased symptoms, _IV SITE #1:_, Advised not to ambulate without assistance, Patient in position of comfort, Side rails up, Cart in lowest position, Family at bedside. (04:40 AGAN) Toradol injection: Order: Toradol injection (ketorolac tromethamine) - Dose: 30 mg : IV Push Schedule: Now Ordered by: Fred Morataya MD Entered by: Fred Morataya MD adán Dec 04, 2016 04:12 , Acknowledged by: Faisal Ochoa RN adán Dec 04, 2016 04:14 Documented as given by: Faisal Ochoa RN adán Dec 04, 2016 04:22 Patient, Medication, Dose, Route and Time verified prior to administration. Amount given: 30 mg, IV SITE #1 IVP, initial medication, Slowly, Awake and alert- acceptable, Catheter placement confirmed via flush prior to administration, IV site without signs or symptoms of infiltration during medication administration, No swelling during administration, No drainage during administration, IV flushed after administration, Correct patient, time, route, dose and medication confirmed prior to administration, Patient advised of actions and side-effects prior to administration, Allergies confirmed and medications reviewed prior to administration, Patient tolerated procedure well, Patient in position of comfort, Side rails up, Cart in lowest position, Family at bedside. : Follow Up : Response assessment performed, No signs or symptoms of allergic reaction noted, Decreased pain, Decreased symptoms, _IV SITE #1:_, Advised not to ambulate without assistance, Patient in position of comfort, Side rails up, Cart in lowest position, Family at bedside. (04:40 AGAN) Zofran intravenous: Order: Zofran intravenous (ondansetron HCl) - Dose: 8 mg : IV Push Schedule: Now Ordered by: Fred Morataya MD Entered by: Fred Morataya MD SatDec 04, 2016 03:05 , Acknowledged by: Faisal Ochoa RN SatDec 04, 2016 03:11 Documented as given by: Faisal Ochoa RN SatDec 04, 2016 03:17 Patient, Medication, Dose, Route and Time verified prior to &a-1R&a+25V*p+0X*e9255S*c202B*c15G*c2P*p-0X&a-25V&a+1R Name: Deana Sandra : 1960 F56 MedRec: [id number] AcctNum: [id number] Prepared: SatDec 04, 2016 05:37 by Interface Page 6 of 10 pMD [facility] EMERGENCY RECORD administration. Amount given: 8 mg, IV SITE #1 IVP, initial medication, Slowly, Awake and alert- acceptable, Catheter placement confirmed via flush prior to administration, IV site without signs or symptoms of infiltration during medication administration, No swelling during administration, No drainage during administration, IV flushed after administration, Correct patient, time, route, dose and medication confirmed prior to administration, Patient advised of actions and side-effects prior to administration, Allergies confirmed and medications reviewed prior to administration, Patient tolerated procedure well, Patient in position of comfort, Side rails up, Cart in lowest position, Family at bedside. : Follow Up : Response assessment performed, No signs or symptoms of allergic reaction noted, Decreased symptoms, _IV SITE #1:_, Advised not to ambulate without assistance, Patient in position of comfort, Side rails up, Cart in lowest position, Family at bedside. (03:45 AGAN) HPI KNEE (03:06 LLDO) CHIEF COMPLAINT: Patient presents for evaluation of decreased range of motion, Patient presents for evaluation of injury, Patient presents for evaluation of pain, Patient presents for evaluation of tenderness, Patient presents for evaluation of weakness, Patient presents for evaluation of broke her left patella and had it surgically repaired in [place]. per spouse, surgeon used screw and wire. pt was doing well until going to the bathroom this morning, twisted the knee some, heard a loud "pop" and immediately had severe pain. pain is constant. HISTORIAN: History provided by patient, History provided by patient's spouse. MECHANISM OF INJURY: Unknown mechanism, Mechanism of injury: Body motion, Mechanism of injury is unknown. LOCATION: Symptoms are generalized. QUALITY: Pain is dull in nature, described as aching, described as BECOMES SHARP WITH MOVEMENT OR PALPATION. SEVERITY: Maximum severity of symptoms severe, Currently symptoms are severe. TIME COURSE: Sudden onset of symptoms, just prior to arrival, There has been no change in the patient's symptoms over time. ASSOCIATED WITH: Associated with decreased range of motion, Associated with inability to ambulate, Associated with inability to bear weight, No associated open wounds, Associated with swelling, incision well healed w/o evidence of any inflammation or infection. EXACERBATED BY: Patient's condition exacerbated by movement. RELIEVED BY: Patient's condition relieved by nothing. ROS CONSTITUTIONAL: Negative constitutional review of systems. (03:14 &a-1R&a+25V*p+0X*x0625F*c202B*c15G*c2P*p-0X&a-25V&a+1R Name: Deana Sandra : 1960 F56 MedRec: [id number] AcctNum: [id number] Prepared: Ahmet Dec 04, 2016 05:37 by Interface Page 7 of 10 pMD [facility] EMERGENCY RECORD LLDO) EYES: Negative eye review of systems, Historian denies eye pain, denies eye redness, denies eye discharge. (03:18 LLDO) ENT: Negative ears, nose, throat review of systems, Historian denies epistaxis, denies rhinorrhea, denies sinus pain, denies sore throat. (03:18 LLDO) MUSCULOSKELETAL: Historian reports arthralgias, reports injury. ONLY IN HPI. (03:14 LLDO) SKIN: Negative skin review of systems, Historian denies cellulitis, denies rash, denies skin changes, denies skin lesions. (03:18 LLDO) NEUROLOGIC: Negative neurologic review of systems, Historian denies confusion, denies dizziness, denies focal weakness, denies mental status changes. (03:18 LLDO) HEMO/LYMPHATIC: Normal hematologic/lymphatic system review, Historian denies abnormal blood clotting, denies gum bleeding, denies petechiae. (03:18 LLDO) ALLERGIC/IMMUNOLOGIC: Normal allergy/immunologic system review, Historian denies eczema, denies environmental allergies, denies food allergies. (03:18 LLDO) PSYCHIATRIC: Negative psychiatric review of systems, Historian denies alcohol abuse, denies anxiety, denies depression, denies drug abuse, denies hallucinations. (03:18 LLDO) NOTES: All systems reviewed, negative except as described above. (03:14 LLDO) PAST MEDICAL HISTORY MEDICAL HISTORY: Past medical history includes cardiac history, myocardial infarction, Treated with stent placement, Number of stents: 5, Past medical history includes renal disease, kidney stone(s), Past medical history includes cardiac history, stints x 06 dec 2015, Past medical history includes history of hypertension, which has been treated, Patient is compliant. no changes 12/04/16. (04:09 AGAN) FEMALE SURGICAL HISTORY: Surgical history of orthopedic surgery, left knee, Notes: 2 weeks ago, LEFT FOOT LEFT ARM YESY LEFT JAW, Surgical history of cholecystectomy, Surgical history of hysterectomy, stints x 2 dec 201`6. (04:09 AGAN) PSYCHIATRIC HISTORY: Notes: DENIES. (04:09 AGAN) SOCIAL HISTORY: Patient denies alcohol use, Patient denies drug use, Patient has no smoking history, Patient denies alcohol use, Patient denies drug use, Patient has no smoking history. (04:09 AGAN) NOTES: Nursing records reviewed, Agree with nursing records, Medication list reviewed. (03:18 LLDO) PHYSICAL EXAM CONSTITUTIONAL: Vital Signs Reviewed, Patient afebrile, Pulse normal, Blood pressure, in severe pain, &a-1R&a+25V*p+0X*r8838A*c202B*c15G*c2P*p-0X&a-25V&a+1R Name: Deana Sandra Suri : 1960 F56 MedRec: [id number] AcctNum: [id number] Prepared: Ahmet Dec 04, 2016 05:37 by Interface Page 8 of 10 pMD [facility] EMERGENCY RECORD Respiratory rate normal, Patient appears, uncomfortable, Patient appears, in severe pain distress, Patient alert and oriented to person, place and time, Nursing notes reviewed. (03:15 LLDO) HEAD: Head exam normal, Head exam included findings of head atraumatic, normocephalic. (03:18 LLDO) EYES: Eye exam normal, Eye exam included findings of eyelids normal to inspection, Pupils equally round and reactive to light, Extraocular muscles intact. (03:18 LLDO) ENT: ENT exam normal, Ear exam normal, Nose exam normal. (03:18 LLDO) NECK: Neck exam normal, Neck exam included findings of normal range of motion, Trachea midline, no meningeal signs, no tenderness. (03:18 LLDO) BACK: Back exam normal, Back exam included findings of normal inspection, range of motion normal. (03:18 LLDO) UPPER EXTREMITY: Upper extremity exam normal, Upper extremity exam included findings of inspection normal, Range of motion normal. (03:18 LLDO) LOWER EXTREMITY: Lower extremity exam included findings of inspection abnormal, swelling, Range of motion, Left knee:, unable to move on own, Passive range of motion causes pain, Motor strength, Sensation intact, Posterior tibial pulse normal, Pedal pulse normal, Airam's negative, distal pulses intact, capillary refill less than 2 seconds, distal motor impaired, left side, distal sensory intact. (03:15 LLDO) NEURO: Neuro exam normal, Neuro exam findings include patient oriented to person, place and time, Speech normal, Chris coma scale 15. (03:18 LLDO) SKIN: Skin exam normal, Skin exam included findings of skin warm, dry, and normal in color, no rash. (03:18 LLDO) PSYCHIATRIC: Psychiatric exam normal, Psychiatric exam included findings of patient oriented to person place and time, Normal affect. (03:18 LLDO) EVENTS TRANSFER: Triage to Emergency Main ED -01. (SatDec 04, 2016 02:57 AGAN) Removed from Emergency Main ED -01. (05:28 AGAN) DOCTOR NOTES (04:33 LLDO) TEXT: pt has a good supply of oxycontin for home now. she is to call surgeon this morning for sandy appt. no wt-bearing. can't use crutches but has walker and wheelchair at home. PROBLEM LIST No recorded problems DIAGNOSIS (04:33 LLDO) &a-1R&a+25V*p+0X*q1229N*c202B*c15G*c2P*p-0X&a-25V&a+1R Name: Deana Sandra : 1960 F56 MedRec: [id number] AcctNum: [id number] Prepared: SatDec 04, 2016 05:37 by Interface Page 9 of 10 D [facility] EMERGENCY RECORD FINAL: PRIMARY: LEFT knee pain. DISPOSITION PATIENT: Disposition Type: Discharge, Disposition: *Discharge Home. (04:33 LLDO) Disposition Transport: Wheelchair, Condition: Good, Patient left the department. (05:28 AGAN) INSTRUCTION (04:39 LLDO) DISCHARGE: KNEE PAIN, UNCERTAIN CAUSE. FOLLOWUP: Follow up with Primary Care Physician as soon as possible. SPECIAL: Follow-up with your surgeon. PRESCRIPTION No recorded prescriptions IMAGING *DISCHARGE INSTRUCTIONS RECEIPT: Image captured from scanner. (05:29 AGAN) *SUPPLY CHARGE SHEET: Image captured from scanner. (05:29 AGAN) VITAL SIGNS: Image captured from scanner. (05:30 AGAN) ADMIN (04:40 LLDO) DIGITAL SIGNATURE: MD Morataya Lloyd. Joel: AGAN=VELMA Ochoa, Faisal LLDO=MD Morataya Lloyd &a-1R&a+25V*p+0X*[id number]*c202B*c15G*c2P*p-0X&a-25V&a+1R Name: Deana Sandra : 1960 F56 MedRec: [id number] AcctNum: [id number] Prepared: SatDec 04, 2016 05:37 by Interface Page 10 of 10 pMD [facility] MEDICATION RECONCILIATION You were seen in the Emergency Department on: SatDec 04, 2016 KNOWN ALLERGIES ALLERGIES: (Unconfirmed) FOOD ALLERGIES: (Unconfirmed) Iodides Iodine (Unconfirmed) LATEX ALLERGY? (Unconfirmed) Penicillin G Sodium (Unconfirmed) Penicillins Sulfa (Sulfonamide Antibiotics): - Entered category: Sulfa (Sulfonamide Antibiotics) Sulfa Antibiotics (Unconfirmed) Sulfacetamide (Unconfirmed) Sulfasalazine (Unconfirmed) Sulfonamide Derivatives (Unconfirmed) VICOdin MEDICATIONS GIVEN WHILE IN THE EMERGENCY DEPARTMENT Duramorph (PF) (morphine sulfate/preservative free) - Dose: 4 milligram(s) : IV Push Zofran intravenous (ondansetron HCl) - Dose: 8 milligram(s) : IV Push Benadryl injection (diphenhydramine HCl) - Dose: 25 milligram(s) : IV Push Duramorph (PF) (morphine sulfate/preservative free) - Dose: 4 milligram(s) : IV Push Toradol injection (ketorolac tromethamine) - Dose: 30 milligram(s) : IV Push Notes from the emergency department Reviewed with family Reviewed with patient Reviewed with family Reviewed with patient &a-1R&a+25V*p+0X*[id number]*c202B*c15G*c2P*p-0X&a-25V&a+1R Name: Deana Sandra Suri : 1960 F56 MedRec: [id number] AcctNum: [id number] Prepared: Ahmet Dec 04, 2016 05:37 by Interface pMSuri GUERRERO
[2016-12-04] MEDS ORDERED: Promethazine HCl 25 MG/ML VIAL ONE (05:06)
--- NOTE | 2016-12-04 08:42 | RAD ---
FOUR VIEWS LEFT KNEE: Comparison: 11-10-16 FINDINGS: Interval placement of screw and metallic wiring transfixing the previously noted patellar fracture. Lucency persists. In addition, inferior to the previous fracture plane there is an additional nond isplaced subtle fracture lucency indicating interval fracture without obvious hardware complication. Mild irregularity at the cephalad aspect of the patella may be post procedural. IMPRESSION: Fixated fracture. Within the interim, comparing to the 11-10-16 exam there has been an additional, no ndisplaced subtle fracture lucency just inferior to the previously documented fracture lucency. Con tinued imaging follow up may prove useful. POS: [facility]
== END 2016-12-04 04:55 | disposition home or self-care (01) ==
LOC: MADERS 02:46
DX: M25.562 Pain in left knee (principal); I25.2 Old myocardial infarction; I10 Essential (primary) hypertension; Z95.5 Presence of coronary angioplasty implant and graft
CPT/HCPCS: 96374; 96375; 96376; J1200; J1885; J2270; J2405; J2550

== ENCOUNTER 2018-04-19 09:35 | Emergency (ER) | payer OTHER, SELFPAY ==
[2018-04-19] MEDS ORDERED: diphenhydrAMINE 25 MG CAP ONE (10:13)
[2018-04-19] MEDS ORDERED: Phenergan/Codeine 10-6.25mg/5ml UDCUP ONE (10:13)
[2018-04-19] MEDS ORDERED: Azithromycin 250 MG TAB ONE (10:13)
--- NOTE | 2018-04-19 11:30 | RAD ---
PORTABLE CHEST: Date: 04/19/18 PROVIDED CLINICAL HISTORY: Cough. FINDINGS: Comparison with 01/01/16. Cardiac and mediastinal silhouette is within normal limits. Lungs appear clear. No pleural fluid or p neumothorax apparent. IMPRESSION: No evidence for an acute cardiopulmonary process. POS: [facility]
== END 2018-04-19 11:05 | disposition home or self-care (01) ==
LOC: MADERS 09:35
DX: J20.9 Acute bronchitis, unspecified (principal); I25.2 Old myocardial infarction; I10 Essential (primary) hypertension; Z87.442 Personal history of urinary calculi; Z79.82 Long term (current) use of aspirin
CPT/HCPCS: 71045

== ENCOUNTER 2018-06-26 08:41 | Emergency (ER) | payer SELFPAY ==
--- NOTE | 2018-06-26 09:36 | RAD ---
LEFT FOOT THREE VIEWS: History: Fall. Pain. Comparison: None. FINDINGS: There is evidence of previous surgery involving the first metatarsal and proximal phalanx of the firs t digit. Lisfranc alignment is maintained. There is diffuse bone demineralization. Joint spaces are p reserved. No fracture. There is soft tissue swelling. IMPRESSION: Soft tissue swelling without evidence of fracture. POS: [facility]
== END 2018-06-26 09:25 | disposition home or self-care (01) ==
LOC: MADERS 08:41
DX: S93.602A Unspecified sprain of left foot, initial encounter (principal); I25.2 Old myocardial infarction; I10 Essential (primary) hypertension; Z79.82 Long term (current) use of aspirin; W01.0XXA Fall on same level from slipping, tripping and stumbling without subsequent striking against object, initial encounter

== ENCOUNTER 2018-11-24 18:16 | Emergency (ER) | payer SELFPAY ==
--- NOTE | 2018-11-24 19:31 | RAD ---
FRONTAL RADIOGRAPH CHEST FOUR VIEWS LEFT RIBS 11/24/18 COMPARISON: None. HISTORY: Fall four days ago, pain. Shortness of breath. FINDINGS: Frontal radiograph chest demonstrates no pneumothorax, pleural fluid, focal consolidation, or alveola r edema. Descending thoracic aorta is tortuous. Clips in right upper quadrant suggest prior cholecyst ectomy. Four images of the left ribs demonstrate no displaced fracture. IMPRESSION: No acute findings. POS: [facility]
[2018-11-24] MEDS ORDERED: HYDROcodone/Acetaminophen 5/325 mg Tablet ONE (19:36)
[2018-11-24] MEDS ORDERED: diphenhydrAMINE 25 MG CAP ONE (19:36)
== END 2018-11-24 20:00 | disposition home or self-care (01) ==
LOC: MADERS 18:16
DX: S20.20XA Contusion of thorax, unspecified, initial encounter (principal); I25.2 Old myocardial infarction; I10 Essential (primary) hypertension; Z87.442 Personal history of urinary calculi; W19.XXXA Unspecified fall, initial encounter

== ENCOUNTER 2020-01-24 10:41 | Emergency (ER) | payer SELFPAY ==
[~2020-01-24 10:41] MED LIST: Sodium Chloride 0.9% 1,000 ML BAG ONE; Sodium Chloride 0.9% 100 ML BAG ONE
[2020-01-24 11:23] LABS: Bilirubin Negative (Negative); Blood, Urine Small (Negative); Glucose, Urine (Dipstick) Negative (Negative); Leukocyte Small (Negative); Nitrite Negative (Negative); Protein, Urine (Dipstick) Negative (Neg-Trace); Urobilinogen 0.2 mg/dL (Less than 2)
[2020-01-24] MEDS ORDERED: cefTRIAXone\\ROCEPHIN 1 GM VIAL ONE (11:27)
[2020-01-24 11:47] LABS: Clarity Hazy (Clear)
[2020-01-24 11:49] LABS: Bacteria/HPF 1+ HPF (None Seen); WBC/HPF 21-50 HPF (0-3)
[2020-01-24] MEDS ORDERED: Ibuprofen 600 MG TAB ONE (12:03)
[2020-01-24 12:04] LABS: Band 12 % (5-11); Hemoglobin 13.8 g/dL (12.0-16.0); Lymphocytes 28 % (21-51); MDiff Complete? YES; Mean Corpuscular HGB CONC 31.8 g/dL (32.0-36.0); Mean Corpuscular Hemoglobin 29.2 pg (27.0-31.0); Mean Corpuscular Volume 91.9 fL (78.0-98.0); Mean Platelet Volume 7.8 fL (7.4-10.4); Monocytes 12 % (0-10); Neutrophil 43 % (42-75); Platelet Count 162 thou/uL (130-400); Platelet Morphology Comment Appears Adequate; RBC Distribution Width 11.6 % (11.5-14.5); Reactive Lymphocytes 5 % (0-10); Red Blood Cell (RBC) Count 4.74 mill/uL (4.20-5.40); White Blood Cell (WBC) Count 2.5 thou/uL (4.8-10.8)
[2020-01-24 12:06] LABS: ALT (SGPT) 103 U/L (8-55); AST (SGOT) 100 U/L (5-34); Albumin 3.7 g/dL (3.5-5.0); Alkaline Phosphatase 222 U/L (40-110); Anion Gap 16 mmol/L (10-20); BUN (Urea Nitrogen) 11 mg/dL (9.8-20.1); Bilirubin, Total 0.7 mg/dL (0.2-1.2); Calc. Creatinine Clearance 0 mL/min (70-130); Calcium 8.7 mg/dL (7.8-10.44); Carbon Dioxide 20 mmol/L (22-29); Chloride 106 mmol/L (98-107); Estimated GFR-MDRD 79; Globulin 3.3 g/dL (2.4-3.5); Glucose 89 mg/dL (70-105); Potassium 3.9 mmol/L (3.5-5.1); Sodium 138 mmol/L (136-145)
== END 2020-01-24 13:00 | disposition home or self-care (01) ==
LOC: MADERS 10:41
DX: N30.00 Acute cystitis without hematuria (principal); N10 Acute pyelonephritis; D72.819 Decreased white blood cell count, unspecified; I25.2 Old myocardial infarction; I10 Essential (primary) hypertension
CPT/HCPCS: 36415; 80053; 81003; 81015; 85025; 86140; 87040; 87086; 96365; J0696; J3490; J7050

== ENCOUNTER 2020-08-04 18:33 | Emergency (ER) | payer SELFPAY ==
[2020-08-04] MEDS ORDERED: Aspirin Chewable 81 MG TAB ONE (18:57)
[2020-08-04] MEDS ORDERED: Aspirin 325 MG TAB ONE (18:58)
[2020-08-04 19:18] LABS: #Basophils 0.1 thou/uL (0.0-0.2); #Eosinphils 0.2 thou/uL (0.0-0.7); #Lymphocytes 2.5 thou/uL (1.20-3.40); #Monocytes 0.7 thou/uL (0.11-0.59); #Neutrophils 3.2 thou/uL (1.40-6.50); %Basophils 1.3 % (0.0-1.0); %Eosinophils 2.4 % (0.0-10.0); %Lymphocytes 38.3 % (21.0-51.0); Mean Corpuscular HGB CONC 32.3 g/dL (32.0-36.0); Mean Corpuscular Hemoglobin 28.9 pg (27.0-31.0); Mean Corpuscular Volume 89.5 fL (78.0-98.0); Platelet Count 319 thou/uL (130-400); RBC Distribution Width 11.6 % (11.5-14.5); Red Blood Cell (RBC) Count 4.83 mill/uL (4.20-5.40); White Blood Cell (WBC) Count 6.6 thou/uL (4.8-10.8)
[2020-08-04 19:19] LABS: INR-International Normal Ratio 0.8; Prothrombin Time 11.6 sec (12.0-14.7)
--- NOTE | 2020-08-04 19:19 | RAD ---
XR Chest 1 View Portable HISTORY: Chest pain COMPARISON: 04/19/2018 FINDINGS: The heart size is normal. The lungs are well expanded without focal areas of consolidation, pneumothorax or pleural effusions. IMPRESSION: No radiographic evidence of acute cardiopulmonary process.
[2020-08-04 19:36] LABS: ALT (SGPT) 19 U/L (8-55); AST (SGOT) 18 U/L (5-34); Alkaline Phosphatase 122 U/L (40-110); Anion Gap 16 mmol/L (10-20); BUN (Urea Nitrogen) 18 mg/dL (9.8-20.1); Bilirubin, Total 0.4 mg/dL (0.2-1.2); Calc. Creatinine Clearance 0 mL/min (70-130); Calcium 9.4 mg/dL (7.8-10.44); Carbon Dioxide 22 mmol/L (23-31); Chloride 105 mmol/L (98-107); Estimated GFR-MDRD 86; Globulin 3.5 g/dL (2.4-3.5); Glucose 85 mg/dL (80-115); Protein, Total 7.5 g/dL (6.0-8.3); Sodium 139 mmol/L (136-145)
== END 2020-08-04 21:00 | disposition left against medical advice (07) ==
LOC: MADERS 18:33
DX: R07.9 Chest pain, unspecified (principal); E66.9 Obesity, unspecified; I25.10 Atherosclerotic heart disease of native coronary artery without angina pectoris; I10 Essential (primary) hypertension; I25.2 Old myocardial infarction
CPT/HCPCS: 71045; 80053; 84484; 85025; 85610

== ENCOUNTER 2020-10-21 12:49 | Emergency (ER) | payer SELFPAY ==
[2020-10-21] MEDS ORDERED: Ketorolac Tromethamine 30 MG/ML VIAL ONE (13:34)
[2020-10-21] MEDS ORDERED: Ondansetron ODT 4 MG TAB ONE (13:34)
[2020-10-22 02:09] LABS: SARS-CoV-2 MS2 Positive; SARS-CoV-2 N Gene Negative; SARS-CoV-2 S Gene Negative; SARS-CoV-2 by NAA Not Detected (NotDetected); SARS-CoV-2 orf1ab Negative
== END 2020-10-21 14:00 | disposition home or self-care (01) ==
LOC: MADERS 12:49
DX: B34.9 Viral infection, unspecified (principal); Z20.828 Contact with and (suspected) exposure to other viral communicable diseases; I25.2 Old myocardial infarction; I10 Essential (primary) hypertension
CPT/HCPCS: 87635; 87804; 96372; 99284; J1885; Q0162; U0003

== ENCOUNTER 2020-11-16 16:43 | Emergency (ER) | payer SELFPAY ==
[2020-11-16] MEDS ORDERED: Ibuprofen 800 MG TAB ONE (17:15)
[2020-11-16] MEDS ORDERED: Clindamycin 150 MG CAP ONE (17:15)
== END 2020-11-16 17:20 | disposition home or self-care (01) ==
LOC: MADERS 16:43
DX: K04.7 Periapical abscess without sinus (principal); K02.9 Dental caries, unspecified; K03.81 Cracked tooth; I10 Essential (primary) hypertension; E66.9 Obesity, unspecified; I25.2 Old myocardial infarction; Z87.442 Personal history of urinary calculi; Z79.82 Long term (current) use of aspirin
CPT/HCPCS: 99283

== ENCOUNTER 2021-04-16 19:56 | Emergency (ER) | payer SELFPAY ==
[~2021-04-16 19:56] MED LIST changes: -Sodium Chloride 0.9% 100 ML BAG ONE
[2021-04-16 20:40] LABS: #Basophils 0.1 thou/uL (0.0-0.2); #Eosinphils 0.1 thou/uL (0.0-0.7); #Lymphocytes 2.4 thou/uL (1.20-3.40); #Monocytes 1.1 thou/uL (0.11-0.59); #Neutrophils 10.1 thou/uL (1.40-6.50); %Basophils 0.7 % (0.0-1.0); %Lymphocytes 17.1 % (21.0-51.0); %Monocytes 7.7 % (0.0-10.0); %Neutrophils 73.5 % (42.0-75.0); Hemoglobin 14.5 g/dL (12.0-16.0); Mean Corpuscular HGB CONC 31.7 g/dL (32.0-36.0); Mean Corpuscular Hemoglobin 29.6 pg (27.0-31.0); Mean Corpuscular Volume 93.5 fL (78.0-98.0); Mean Platelet Volume 7.4 fL (7.4-10.4); Platelet Count 339 thou/uL (130-400); RBC Distribution Width 11.5 % (11.5-14.5); Red Blood Cell (RBC) Count 4.88 mill/uL (4.20-5.40); White Blood Cell (WBC) Count 13.8 thou/uL (4.8-10.8)
[2021-04-16 20:52] LABS: Bilirubin Negative (Negative); Blood, Urine Large (Negative); Clarity Cloudy (Clear); Glucose, Urine (Dipstick) Negative (Negative); Ketone, Urine Negative (Negative); Leukocyte Trace (Negative); Nitrite Negative (Negative); Protein, Urine (Dipstick) 30 mg/dL (Neg-Trace); Urobilinogen 0.2 mg/dL (Less than 2); pH, Urine 7.5 (5.0-9.0)
[2021-04-16 20:59] LABS: Bacteria/HPF Rare-Few HPF (None Seen); RBC/HPF 21-50 HPF (0-3)
[2021-04-16 21:04] LABS: Anion Gap 14 mmol/L (10-20); BUN (Urea Nitrogen) 19 mg/dL (9.8-20.1); Calc. Creatinine Clearance 0 mL/min (70-130); Carbon Dioxide 24 mmol/L (23-31); Chloride 105 mmol/L (98-107); Potassium 4.2 mmol/L (3.5-5.1); Sodium 139 mmol/L (136-145)
[2021-04-16 21:05] LABS: ALT (SGPT) 15 U/L (8-55); AST (SGOT) 15 U/L (5-34); Alkaline Phosphatase 133 U/L (40-110); Bilirubin, Total 0.4 mg/dL (0.2-1.2); Calcium 9.3 mg/dL (7.8-10.44); Globulin 3.6 g/dL (2.4-3.5); Glucose 92 mg/dL (80-115); Lipase 26 U/L (8-78); Protein, Total 7.6 g/dL (5.8-8.1)
[2021-04-16] MEDS ORDERED: Ketorolac Tromethamine 30 MG/ML VIAL ONE (21:17)
== END 2021-04-16 22:14 | disposition home or self-care (01) ==
LOC: MADERS 19:56
DX: R10.9 Unspecified abdominal pain (principal); R10.814 Left lower quadrant abdominal tenderness; I25.2 Old myocardial infarction; I10 Essential (primary) hypertension; E66.9 Obesity, unspecified; R30.0 Dysuria; Z87.442 Personal history of urinary calculi
CPT/HCPCS: 74176; 80053; 81003; 81015; 83690; 85025; 87086; 96374; J1885; J7050

== ENCOUNTER 2021-08-10 02:55 | Emergency (ER) | payer SELFPAY ==
[2021-08-10 03:44] LABS: Bilirubin Negative (Negative); Blood, Urine Trace (Negative); Clarity Hazy (Clear); Glucose, Urine (Dipstick) Negative (Negative); Ketone, Urine Negative (Negative); Leukocyte Small (Negative); Nitrite Negative (Negative); Protein, Urine (Dipstick) Negative (Neg-Trace); Urobilinogen 0.2 mg/dL (Less than 2)
[2021-08-10 03:51] LABS: RBC/HPF 0-3 HPF (0-3); Transitional Epithelial 0-3 HPF (None Seen); WBC/HPF 21-50 HPF (0-3)
[2021-08-10 03:52] LABS: Bacteria/HPF Rare-Few HPF (None Seen)
[2021-08-10] MEDS ORDERED: Lactated Ringer's 1,000 ML ONE (03:53)
[2021-08-10] MEDS ORDERED: Ketorolac Tromethamine 30 MG/ML VIAL ONE (03:53)
[2021-08-10] MEDS ORDERED: Cyclobenzaprine 10 MG TAB ONE (03:53)
[2021-08-10] MEDS ORDERED: Ondansetron PF 4 MG/2 ML Vial ONE (03:53)
[2021-08-10 04:10] LABS: #Basophils 0.1 thou/uL (0.0-0.2); #Eosinphils 0.2 thou/uL (0.0-0.7); #Monocytes 1.2 thou/uL (0.11-0.59); #Neutrophils 8.2 thou/uL (1.40-6.50); %Basophils 0.6 % (0.0-1.0); %Eosinophils 1.6 % (0.0-10.0); %Lymphocytes 17.6 % (21.0-51.0); %Neutrophils 70.3 % (42.0-75.0); Hemoglobin 15.1 g/dL (12.0-16.0); Mean Corpuscular HGB CONC 32.7 g/dL (32.0-36.0); Mean Corpuscular Hemoglobin 30.3 pg (27.0-31.0); Mean Corpuscular Volume 92.7 fL (78.0-98.0); Mean Platelet Volume 7.7 fL (7.4-10.4); Platelet Count 267 thou/uL (130-400); RBC Distribution Width 11.8 % (11.5-14.5); Red Blood Cell (RBC) Count 4.97 mill/uL (4.20-5.40); White Blood Cell (WBC) Count 11.6 thou/uL (4.8-10.8)
[2021-08-10 04:30] LABS: ALT (SGPT) 18 U/L (8-55); AST (SGOT) 18 U/L (5-34); Alkaline Phosphatase 119 U/L (40-110); Anion Gap 17 mmol/L (10-20); BUN (Urea Nitrogen) 27 mg/dL (9.8-20.1); Bilirubin, Total 0.4 mg/dL (0.2-1.2); CK (CPK) 49 U/L (29-168); Calc. Creatinine Clearance 0 mL/min (70-130); Calcium 10.6 mg/dL (7.8-10.44); Carbon Dioxide 24 mmol/L (23-31); Chloride 106 mmol/L (98-107); Globulin 3.5 g/dL (2.4-3.5); Glucose 100 mg/dL (80-115); Lipase 29 U/L (8-78); Potassium 4.1 mmol/L (3.5-5.1); Protein, Total 7.5 g/dL (5.8-8.1); Sodium 143 mmol/L (136-145)
[2021-08-10] MEDS ORDERED: Morphine 4 MG/ML VIAL ONE (05:21)
== END 2021-08-10 06:24 | disposition home or self-care (01) ==
LOC: MADERS 02:55
DX: K57.30 Diverticulosis of large intestine without perforation or abscess without bleeding (principal); R11.2 Nausea with vomiting, unspecified; I10 Essential (primary) hypertension; D72.829 Elevated white blood cell count, unspecified; I70.90 Unspecified atherosclerosis; N17.9 Acute kidney failure, unspecified; K44.9 Diaphragmatic hernia without obstruction or gangrene; I25.10 Atherosclerotic heart disease of native coronary artery without angina pectoris; I25.2 Old myocardial infarction; E66.9 Obesity, unspecified; Z79.899 Other long term (current) drug therapy
CPT/HCPCS: 74176; 80053; 81003; 81015; 82550; 83605; 83690; 85025; 87086; 96374; 96375; J1885; J2270; J2405; J7120

== ENCOUNTER 2022-08-27 11:18 | Emergency (ER) | payer SELFPAY ==
[2022-08-27] MEDS ORDERED: Ondansetron PF 4 MG/2 ML Vial ONE (12:16)
[2022-08-27] MEDS ORDERED: Morphine 4 MG/ML VIAL ONE (12:16)
[2022-08-27] MEDS ORDERED: Lactated Ringer's 1,000 ML ONE ×3 (12:16→16:36)
[2022-08-27 12:20] LABS: Band 2 % (5-11); Hemoglobin 15.7 g/dL (12.0-16.0); Lymphocytes 11 % (21-51); MDiff Complete? YES; Mean Corpuscular HGB CONC 32.4 g/dL (32.0-36.0); Mean Corpuscular Hemoglobin 29.9 pg (27.0-31.0); Mean Corpuscular Volume 92.3 fL (78.0-98.0); Mean Platelet Volume 7.6 fL (7.4-10.4); Monocytes 3 % (0-10); Neutrophil 84 % (42-75); Platelet Count 296 thou/uL (130-400); RBC Distribution Width 11.6 % (11.5-14.5); Red Blood Cell (RBC) Count 5.25 mill/uL (4.20-5.40); White Blood Cell (WBC) Count 8.3 thou/uL (4.8-10.8)
[2022-08-27 12:36] LABS: ALT (SGPT) 15 U/L (8-55); AST (SGOT) 15 U/L (5-34); Albumin 4.3 g/dL (3.4-4.8); Alkaline Phosphatase 120 U/L (40-110); Anion Gap 13 mmol/L (10-20); BUN (Urea Nitrogen) 22 mg/dL (9.8-20.1); Bilirubin, Total 0.8 mg/dL (0.2-1.2); CK (CPK) 62 U/L (29-168); Calc. Creatinine Clearance 0 mL/min (70-130); Calcium 9.8 mg/dL (7.8-10.44); Carbon Dioxide 23 mmol/L (23-31); Chloride 107 mmol/L (98-107); Estimated GFR 78; Globulin 3.6 g/dL (2.4-3.5); Glucose 110 mg/dL (80-115); Lipase 20 U/L (8-78); Magnesium 2.2 mg/dL (1.6-2.6); Potassium 4.1 mmol/L (3.5-5.1); Protein, Total 7.9 g/dL (5.8-8.1); Sodium 139 mmol/L (136-145)
[2022-08-27] MEDS ORDERED: Promethazine HCl 25 MG/ML VIAL ONE (13:06)
[2022-08-27] MEDS ORDERED: Diphenoxylate HCl/Atropine Tablet ONE ×2 (13:06→13:07)
[2022-08-27] MEDS ORDERED: Dicyclomine 20 MG/2 ML VIAL ONE (14:22)
[2022-08-27 15:46] LABS: Lactic Acid 2.5 mmol/L (0.5-2.2)
[2022-08-27 16:08] LABS: Bilirubin Negative (Negative); Blood, Urine Negative (Negative); Glucose, Urine (Dipstick) Negative (Negative); Ketone, Urine Negative (Negative); Leukocyte Small (Negative); Nitrite Negative (Negative); Protein, Urine (Dipstick) Negative (Neg-Trace); Urobilinogen 0.2 mg/dL (Less than 2)
[2022-08-27 16:15] LABS: Bacteria/HPF 1+ HPF (None Seen); Clarity Hazy (Clear); RBC/HPF 0-3 HPF (0-3); Squamous Epithelial 0-3 HPF (0-3); Trichomonas/HPF Rare HPF (None Seen)
[2022-08-27] MEDS ORDERED: metroNIDAZOLE 250 MG TAB ONE (16:36)
== END 2022-08-27 19:30 | disposition home or self-care (01) ==
LOC: MADERS 11:18
DX: R11.10 Vomiting, unspecified (principal); R19.7 Diarrhea, unspecified; R55 Syncope and collapse; A59.9 Trichomoniasis, unspecified; I12.9 Hypertensive chronic kidney disease with stage 1 through stage 4 chronic kidney disease, or unspecified chronic kidney disease; N18.9 Chronic kidney disease, unspecified
CPT/HCPCS: 36415; 74176; 80053; 81003; 81015; 82550; 83605; 83690; 83735; 83880; 84443; 84484; 85025; 87086; 93005; 94760; 96361; 96372; 96374; 96375; J2270; J2405; J2550; J7120

== ENCOUNTER 2022-12-03 09:27 | Emergency (ER) | payer SELFPAY ==
[2022-12-03] MEDS ORDERED: Sodium Chloride 0.9% 500 ML ONE (10:14)
[2022-12-03] MEDS ORDERED: Ketorolac Tromethamine 30 MG/ML VIAL ONE (10:17)
[2022-12-03] MEDS ORDERED: Ondansetron PF 4 MG/2 ML Vial ONE (10:17)
[2022-12-03 10:34] LABS: ALT (SGPT) 20 U/L (8-55); AST (SGOT) 17 U/L (5-34); Albumin 4.2 g/dL (3.4-4.8); Alkaline Phosphatase 120 U/L (40-110); Anion Gap 12 mmol/L (10-20); BUN (Urea Nitrogen) 7 mg/dL (9.8-20.1); Bilirubin, Total 0.6 mg/dL (0.2-1.2); Calc. Creatinine Clearance 0 mL/min (70-130); Calcium 9.2 mg/dL (7.8-10.44); Carbon Dioxide 23 mmol/L (23-31); Chloride 103 mmol/L (98-107); Estimated GFR 83; Globulin 3.4 g/dL (2.4-3.5); Glucose 113 mg/dL (80-115); Magnesium 1.9 mg/dL (1.6-2.6); Potassium 3.4 mmol/L (3.5-5.1); Protein, Total 7.6 g/dL (5.8-8.1); Sodium 135 mmol/L (136-145)
[2022-12-03 10:40] LABS: Band 2 % (5-11); Eosinophils 1 % (0-10); Hemoglobin 14.3 g/dL (12.0-16.0); Lymphocytes 2 % (21-51); MDiff Complete? YES; Manual Diff?? YES; Mean Corpuscular HGB CONC 33.3 g/dL (32.0-36.0); Mean Corpuscular Hemoglobin 29.9 pg (27.0-31.0); Mean Corpuscular Volume 89.7 fl (78.0-98.0); Mean Platelet Volume 7.9 fL (7.4-10.4); Metamyelocyte 2 % (0-0); Monocytes 6 % (0-10); Neutrophil 74 % (42-75); Platelet Count 237 10x3/uL (130-400); Platelet Morphology Comment Appears Adequate; RBC Distribution Width 11.1 % (11.5-14.5); RBC Morphology Normal; Reactive Lymphocytes 13 % (0-10); White Blood Cell (WBC) Count 4.1 10x3/uL (4.8-10.8)
[2022-12-03 11:03] LABS: SARS-CoV-2 NAA Rapid Test DETECTED (NotDetected)
[2022-12-03] MEDS ORDERED: Metoclopramide HCl 10 MG/2 ML VIAL ONE (11:54)
[2022-12-03] MEDS ORDERED: diphenhydrAMINE 50 MG/ML VIAL ONE (11:54)
[2022-12-03 12:16] LABS: Bilirubin Negative (Negative); Blood, Urine Trace (Negative); Clarity Clear (Clear); Glucose, Urine (Dipstick) Negative (Negative); Ketone, Urine Negative (Negative); Leukocyte Small (Negative); Nitrite Negative (Negative); Protein, Urine (Dipstick) Negative (Neg-Trace); Specific Gravity, Urine 1.025 (1.005-1.030); Urobilinogen 0.2 mg/dL (Less than 2)
[2022-12-03 12:23] LABS: Bacteria/HPF Rare-Few HPF (None Seen); RBC/HPF 0-3 HPF (0-3)
== END 2022-12-03 12:58 | disposition home or self-care (01) ==
LOC: MADERS 09:27
DX: U07.1 COVID-19 (principal); I10 Essential (primary) hypertension; I25.2 Old myocardial infarction; E66.9 Obesity, unspecified; Z95.5 Presence of coronary angioplasty implant and graft; Z86.12 Personal history of poliomyelitis
CPT/HCPCS: 71045; 80053; 81003; 81015; 83605; 83735; 83880; 84484; 85025; 87040; 87804; 93005; 96374; 96375; J1200; J1885; J2405; J2765; J7030; U0002

== ENCOUNTER 2023-08-16 12:08 | Outpatient (CLI) | payer OTHER | END 2023-08-16 12:09 | disposition home or self-care (01) | LOC: MADRAD 12:08 | PROVIDERS: ATTEND Nurse Practitioner Family | DX: R05.9 Cough, unspecified (principal) | CPT/HCPCS: 71046 ==

== ENCOUNTER 2023-10-29 13:03 | Emergency (ER) | payer SELFPAY ==
[~2023-10-29 13:03] MED LIST changes: -Sodium Chloride 0.9% 1,000 ML BAG ONE; +Sodium Chloride 0.9% 500 ML BAG ONE
[2023-10-29] MEDS ORDERED: Sodium Chloride 0.9% 500 ML ONE (13:44)
[2023-10-29] MEDS ORDERED: Acetaminophen 325 MG TAB ONE (13:44)
[2023-10-29 13:49] LABS: Band 7 % (5-11); Eosinophils 2 % (0-10); Hematocrit 45.9 % (36.0-47.0); Hemoglobin 14.5 g/dL (12.0-16.0); Lymphocytes 13 % (21-51); MDiff Complete? YES; Mean Corpuscular HGB CONC 31.5 g/dL (32.0-36.0); Mean Corpuscular Hemoglobin 29.7 pg (27.0-31.0); Mean Corpuscular Volume 94.2 fl (78.0-98.0); Mean Platelet Volume 7.9 fL (7.4-10.4); Monocytes 2 % (0-10); Neutrophil 76 % (42-75); Platelet Adequacy Comment Appears Adequate; Platelet Count 221 10x3/uL (130-400); Red Blood Cell (RBC) Count 4.87 mill/uL (4.20-5.40); White Blood Cell (WBC) Count 6.4 10x3/uL (4.8-10.8)
[2023-10-29 13:50] LABS: ALT (SGPT) 14 U/L (8-55); AST (SGOT) 16 U/L (5-34); Albumin 3.9 g/dL (3.4-4.8); Alkaline Phosphatase 106 U/L (40-110); Anion Gap 14 mmol/L (10-20); BUN (Urea Nitrogen) 16 mg/dL (9.8-20.1); Bilirubin, Total 1.1 mg/dL (0.2-1.2); Calc. Creatinine Clearance 0 mL/min (70-130); Carbon Dioxide 18 mmol/L (23-31); Chloride 109 mmol/L (98-107); Estimated GFR 86; Globulin 3.2 g/dL (2.4-3.5); Glucose 106 mg/dL (80-115); Magnesium 2.1 mg/dL (1.6-2.6); Potassium 3.8 mmol/L (3.5-5.1); Protein, Total 7.1 g/dL (5.8-8.1); Sodium 137 mmol/L (136-145)
[2023-10-29 13:51] LABS: Troponin I Less than 0.010 ng/mL (< 0.028)
[2023-10-29 14:14] LABS: SARS-CoV-2 NAA Rapid Test Not Detected (NotDetected)
[2023-10-29] MEDS ORDERED: Ondansetron PF 4 MG/2 ML Vial ONE (14:53)
== END 2023-10-29 15:21 | disposition home or self-care (01) ==
LOC: MADERS 13:03
DX: A08.4 Viral intestinal infection, unspecified (principal); I10 Essential (primary) hypertension
CPT/HCPCS: 71045; 80053; 83605; 83735; 83880; 84484; 85025; 87804; 93005; 96361; 96374; J2405; J7030; U0002